=== PATIENT | female | born 1975 | race Caucasian/White ===

== ENCOUNTER 2020-11-24 12:23 | Emergency (ER) | payer OTHER ==
[~2020-11-24] VITALS: Ht 157.5 cm; Wt 68.0 kg
[~2020-11-24 12:23] MED LIST: ACETAMINOPHEN-1 EAC1 PO; ACIPHEX 20 MG T20 MG PO; CELEXA40 MG PO; CLONAZEPAM 0.50.5 M1 PO; CLONAZEPAM 1 MG1 M1 PO; DEPAKOTE 250MG250 M1; HYDROCODON-ACE1 EAC7 PO; IBUPROFEN 800800 M1 PO; MACROBID 100 M100 M1 PO; ONDANSETRON HCL4 M2 PO; PEPCID40 MG PO; PERCOCET 5-3251 EACH PO; PREDNISONE 10 M10 MG PO; SEROQUEL200 MG PO; XANAX 0.5 MG0.5 MG; ZOFRAN ODT4 MG PO; ZYRTEC 10 MG TA10 MG PO
[2020-11-24] MEDS ORDERED: DEPAKOTE500 MG PO (12:44)
[2020-11-24] MEDS ORDERED: XANAX 0.5 MG0.5 M1 PO (12:44)
[2020-11-24] MEDS ORDERED: XANAX1 MG PO (12:45)
[2020-11-24] MEDS ORDERED: [UNRECOGNIZED DRUG - OTHER] PO (12:45)
[2020-11-24 13:04] LABS: ABSOLUTE BASOPHILS 0.1 thou/uL (0.0-0.2); ABSOLUTE EOSINOPHILS 0.1 thou/uL (0.0-0.7); ABSOLUTE LYMPHOCYTES 2.4 thou/uL (0.8-5.3); ABSOLUTE MONOCYTES 0.8 thou/uL (0.0-1.2); ABSOLUTE NEUTROPHILS 5.8 thou/uL (1.6-8.1); BASOPHILS 0.8 %; EOSINOPHILS 1.2 %; HEMATOCRIT 44.5 % (37.0-47.0); HEMOGLOBIN 15.2 gm/dL (12.0-15.0); LYMPHOCYTES 26.3 %; MCH 32.4 pg (26.0-34.0); MCHC 34.3 g/dL (28.0-37.0); MCV 94.7 fL (80.0-100.0); MPV 7.6 fl. (7.2-11.1); NUCLEATED RBCS 0 /100WBC; PLATELET COUNT* 249 thou/uL (150-400); POLYS 62.7 %; RDW-CV 13.6 % (10.5-14.5); WBC 9.3 thou/uL (4.0-11.0)
[2020-11-24 13:10] LABS: CALCIUM 8.8 mg/dL (8.5-10.1); CREATININE 0.7 mg/dL (0.6-1.3); POTASSIUM 3.7 mmol/L (3.5-5.1)
[2020-11-24 13:21] LABS: ALBUMIN 3.5 g/dL (3.4-5.0); TOTAL BILIRUBIN 0.3 mg/dL (<0.1-1.0); TOTAL PROTEIN 7.8 g/dL (6.4-8.2)
[2020-11-24] MEDS ORDERED: VENTOLIN HFA 1818 GM INH (14:24)
[2020-11-24] MEDS ORDERED: PREDNISONE 10 M10 MG PO (14:24)
[2020-11-24] MEDS ORDERED: DOXYCYCLINE 10100 MG PO (14:24)
[2020-11-24 14:44] VITALS: BP 136/63
== END 2020-11-24 14:45 | disposition home or self-care (01) ==
LOC: M.ERS 12:23
PROVIDERS: Nurse Practitioner Family
DX: J06.9 Acute upper respiratory infection, unspecified (principal); F17.210 Nicotine dependence, cigarettes, uncomplicated; Z98.890 Other specified postprocedural states; Z79.899 Other long term (current) drug therapy; Z88.2 Allergy status to sulfonamides